=== PATIENT | male | born 1965 | race Caucasian/White ===

== ENCOUNTER → 2017-10-27 12:57 | Outpatient (CLI) | payer SELFPAY ==
[2017-10-27 14:03] LABS: Absolute Lymphocyte Count 2.69 X10^3/ul (0.83-4.51); Absolute Neutrophil Count 4.2 X10^3/uL (2.0-7.7); Basophil# 0.03 X10^3/uL; Basophil% 0.4 % (0-1); Eosinophil# 0.25 X10^3/uL; Eosinophils% 3.2 % (0-5); Hematocrit 49.1 % (40-54); Hemoglobin 17.1 g/dl (13.0-16.5); Lymphocyte # 2.69 X10^3/ul (4.0); Lymphocyte % 34.3 % (19-41); Mean Corp Hgb Conc 34.8 g/gl (32-36); Mean Corpuscular Hgb 29.7 pg (27.0-32.0); Mean Corpuscular Volume 85.4 fL (80-94); Mean Platelet Vol. 10.9 fl (6.2-12.0); Monocyte# 0.67 X10^3/uL; Monocyte% 8.5 % (0-10); Neutrophil # 4.17 X10^3/uL (2.7-7.7); Neutrophil % 53.2 % (47-70); Platelet Count 160 K/mm3 (150-450); RBC Distribution Width CV 12.1 % (11.6-14.6); Red Blood Count 5.75 M/mm3 (4.6-6.2); White Blood Count 7.8 K/mm3 (4.4-11.0)
[2017-10-27 14:04] LABS: POSITIVE COUNT NO; POSITIVE DIFFERENTIAL NO; POSITIVE MORPHOLOGY NO
[2017-10-27 14:28] LABS: ALB/GLOB Ratio 1.1 RATIO (0.9-2.4); AST(SGOT) 18 U/L (15-37); Alanine Aminotransfer ALT/SGPT 31 U/L (16-61); Albumin, Serum 3.7 g/dL (3.2-5.0); Alkaline Phosphatase 60 U/L (45-117); Anion Gap 2 (5-15); BUN 12 mg/dL (7-18); BUN/Creat Ratio 11.2 RATIO (10-20); Calcium,Total 8.6 mg/dL (8.5-10.1); Chloride 107 mmol/L (98-107); Creatinine, Serum 1.07 mg/dL (0.70-1.30); EST Glomerular Filtration Rate 77 mL/min (>60); Est Glom Filt Rate - Afr Amer 93 mL/min (>60); Globulin 3.4 g/dL (2.2-4.2); Glucose 93 mg/dL (74-106); PSA,Total - Annual Screen 1.32 ng/mL (0.00-4.00); Protein, Total 7.1 g/dL (6.4-8.2); Sodium Level 139 mmol/L (136-145); Thyroid Stim Hormone (TSH) 0.63 uIU/mL (0.358-3.74)
[2017-10-27 15:05] LABS: HIV - WCH Non-Reactive (Nonreactive); Vitamin D,25 Hydroxy 19.1 ng/mL (29.95-100.01)
[2017-10-30 15:08] LABS: HCV Quant. RNA PCR HCV Not Detected IU/mL (.)
== END ==
PROVIDERS: Family Provider Family Medicine; PCP Family Medicine; Visit Provider Family Medicine
DX: R51 Headache (principal); R53.82 Chronic fatigue, unspecified; Z12.5 Encounter for screening for malignant neoplasm of prostate
CPT/HCPCS: 36415; 80053; 82306; 84153; 84443; 85025; 86703; 87522; G0103

== ENCOUNTER → 2019-09-06 13:49 | Outpatient (CLI) | payer SELFPAY ==
--- NOTE | 2019-09-06 13:57 | CT_ITS ---
STUDY: CT ABDOMEN AND PELVIS WITH CONTRAST REASON FOR EXAM: Male, 54 years old. LEFT UPPER QUAD ABD PAIN X 1 MONTH RADIATION DOSAGE (If Supplied By Facility): CTDIvol = ( 9.10 ) mGy, DLP = ( 411.39 ) mGycm TECHNIQUE: Transaxial images were obtained from the dome of the diaphragm to the symphysis pubis with oral contrast. Oral and amp; IV Readi-CAT and amp; 100mL Isovue-300 was administered. Sagittal and coronal images were reconstructed. Individualized dose optimization techniques were used for this CT. COMPARISON: Comparison is made with prior examination dated June 28, 2014. FINDINGS: The visualized lung bases are unremarkable. The visualized portions of the heart are within normal limits. Normal liver. Normal gallbladder and extrahepatic biliary system. Normal spleen. The previously seen hypodensity in the posterior midportion of the spleen is not seen at this time. Normal pancreas. There is a small, circumscribed, smooth, low attenuation left adrenal mass, consistent with an adrenal adenoma. This measures 7.8 mm. This is unchanged. Normal right adrenal gland. Normal right kidney. Normal left kidney. There is a small hiatal hernia. Normal small intestine. There are multiple colonic diverticula consistent with diverticulosis. The appendix is visualized and appears normal. There is atherosclerotic calcification of the abdominal aorta, without a demonstrated aneurysm. Normal inferior vena cava. There is borderline retroperitoneal lymphadenopathy with enlarged nodes no greater than 10mm in the short axis diameter. Normal urinary bladder. The prostate measures 3.9 cm x 4.2 cm. This causes indentation of the bladder base. There is a small umbilical hernia containing fat. Small right inguinal hernia containing fat. There are mild degenerative changes of the visualized lumbar spine. CT/Abdomen/Pelvis WITH Contrast IMPRESSION: Stable 7.8 mm adenoma in the left adrenal gland. Sigmoid diverticulosis. No acute amount is seen. Electronically Signed: Jonatan Gomez, at 14:30 EDT , Service support ,
== END ==
PROVIDERS: PCP Family Medicine; Referring Provider Family Medicine; Visit Provider Family Medicine
DX: R10.12 Left upper quadrant pain (principal)
CPT/HCPCS: 74177; Q9967

== ENCOUNTER → 2019-09-13 12:27 | Outpatient (CLI) | payer SELFPAY ==
[2016-08-18 22:25] VITALS: BMI 23.0
[2019-09-13 14:20] LABS: PSA,Total - Annual Screen 2.38 ng/mL (0.00-4.00)
== END ==
PROVIDERS: PCP Family Medicine; Referring Provider Family Medicine; Visit Provider Family Medicine
DX: Z12.5 Encounter for screening for malignant neoplasm of prostate (principal)
CPT/HCPCS: 36415; 84153; G0103

== ENCOUNTER → 2020-03-20 14:10 | Outpatient (CLI) | payer SELFPAY ==
--- NOTE | 2020-03-20 14:13 | CT_ITS ---
STUDY: CT ABDOMEN AND PELVIS WITH CONTRAST REASON FOR EXAM: Male, 55 years old. DIVERTICULITIS RADIATION DOSAGE (If Supplied By Facility): CTDIvol = ( 8.19 ) mGy, DLP = ( 328.94 ) mGycm TECHNIQUE: Transaxial images were obtained from the dome of the diaphragm to the symphysis pubis without oral contrast. IV 100mL Isovue-300 was administered. Sagittal and coronal images were reconstructed. Individualized dose optimization techniques were used for this CT. COMPARISON: Comparison is made with prior study of 09/06/2019. FINDINGS: The visualized lung bases are unremarkable. The visualized portions of the heart are within normal limits. Normal liver. Normal gallbladder and extrahepatic biliary system. Normal spleen. Normal pancreas. There is a small, circumscribed, smooth, low attenuation left adrenal mass, consistent with an adrenal adenoma. This measures 9 mm. This is unchanged. Normal right adrenal gland. Normal right kidney. Normal left kidney. There is a small hiatal hernia. Normal small intestine. There are scattered colonic diverticula consistent with diverticulosis. The appendix is visualized and appears normal. Normal abdominal aorta. Normal inferior vena cava. Normal retroperitoneum. Normal urinary bladder. There is enlargement of the prostate gland. It measures 4 cm x 4.2 cm. There is a right-sided inguinal hernia containing adipose tissue. There are mild degenerative changes of the visualized lumbar spine. CT/Abdomen/Pelvis WITH Contrast IMPRESSION: Stable 9 mm nodule in the left adrenal gland suggestive of adenoma. Mild prostatic hypertrophy. Electronically Signed: Jonatan Gomez, at 15:16 EST , Service support ,
== END ==
LOC: CT 14:12
PROVIDERS: PCP Family Medicine; Referring Provider Family Medicine; Visit Provider Family Medicine
DX: K57.32 Diverticulitis of large intestine without perforation or abscess without bleeding (principal)
CPT/HCPCS: 74177; Q9967

== ENCOUNTER 2020-04-15 10:11 | Day surgery (SDC) | payer SELFPAY ==
[2020-04-15] VITALS (7 sets, daily range): BP systolic 112–123; BP diastolic 63–80; PULSE 62–91; RESP 16–18; TEMP 36.4–36.9; O2SAT 98–100; BMI 20.9
[2020-04-15] MEDS: Lactated Ringers 1,000 ML 100 ML IV (10:54)
--- NOTE | 2020-04-15 11:00 | HP_ITS ---
Intake Intake Visit Reasons: UPDATE H& P CSCOPE Chief Complaint: discuss scope International Coordinator Required: No Is patient in pain?: No Allergies No Known Allergies Allergy (Verified 03/05/20 14:07) Medications ascorbic acid (vitamin C) 1,000 mg tablet 1 g PO DAILY tab 09/20/19 [History Confirmed 03/05/20] cholecalciferol (vitamin D3) 25 mcg (1,000 unit) capsule 25 mcg PO DAILY 09/20/19 [History Confirmed 03/05/20] multivitamin 1 tab PO DAILY 09/20/19 [History Confirmed 03/05/20] amoxicillin 875 mg-potassium clavulanate 125 mg tablet 1 tab PO BID 03/05/20 [History Confirmed 03/05/20] PFSH Medical History Viral hepatitis C without hepatic coma (Acute) Nasal sinus polyp (Acute) IBS (irritable bowel syndrome) (Acute) Vitamin D deficiency (Acute) Chronic fatigue (Chronic) Kidney stones (Acute) Diarrhea (Acute) Abdominal pain (Acute) Surgical History Hx of toe surgery (Acute) Hx of nasal polypectomy (Acute) Hx of excision of mass (Acute) Family History Father Prostate cancer Mother Crohn disease Colitis Thyroid disorder Social History (Updated 03/05/20 @ 15:25 by Oneyda JACOBO, PA-C) Smoking Status: Never smoker second hand exposure: No alcohol intake: never substance use type: does not use caffeine: Yes what type of physical activity do you participate in: none frequency: does not exercise HPI HPI HPI: VITALY BRYANT, is a 55 M who presents to the office today for HPI HPI HPI: VITALY BRYANT is a 55 M who presents to the office today for scheduling colonoscopy. Patient was noted to start antibiotics on Monday by his PCP for diverticulitis. Patient notes he continues to have pain and has 3 days left of antibiotics. Assessment & Plan Problems 1. Left upper quadrant abdominal pain R10.12 Plan - Patient will need to complete antibiotics and be pain free for 4-5 weeks prior to scheduling for a colonoscopy - Patient also was notified that he will have to meet with financial services prior to scheduling due to a hospital balance. Coding Level of Care Code Off vis,est,level 2 Diagnoses Left upper quadrant abdominal pain R10.12 ??Abdominal location: left upper quadrant I have re-examined the patient. There are no clinical changes since date of exam.
--- NOTE | 2020-04-15 11:30 | COLBX_PTH ---
PATIENT: VITALY BRYANT LOC: EN U#:[id number] AGE/SX: 55/M ROOM: RE04/15/[address]: Dr. Fortunato Olivares MD : 1965 BED: DIS: 04/15/2020 SPEC #: [id number] RECD: 04/15/20 14:09 STATUS: JIM KIKA #: [id number] ABILIO: 04/15/20 11:[address]: Fortunato Olivares DEPT: SURGICAL PATHOLOGY RECD BY: Ladonna Ford ENTERED: 04/15/20 14:16 SP TYPE: COLON BX OTHR DR: Dr. Dante Martin DO Tissues: COLON BIOPSY Procedures: Surgery Specimen Level IV HEADER OPERATION: Colonoscopy (MAC) PRE-OP DIAGNOSIS: Left upper quadrant abdominal pain TISSUE SUBMITTED: Random colonic biopsy MICROSCOPIC DIAGNOSIS Colon, random biopsy: Fragments of colonic mucosa with a few pigment-laden macrophages, suggestive of melanosis coli. SJ:oniel 04/16/20 MICROSCOPIC DESCRIPTION Slides are reviewed. GROSS DESCRIPTION Received in fixative is one container labeled with the patient's name and designated random colon biopsy. The specimen consists of multiple irregular fragments of light green soft tissue that in aggregate measure 2 x 1 x 0.1 cm. The specimen is totally submitted in one cassette. / AM:oniel 04/15/20 TC:5 CPT: 19382
--- NOTE | 2020-04-15 11:43 | OP.CCLET_ITS ---
04/15/2020 Dante Martin [address] [place] [address] Re : Colonoscopy procedure for Antony Mazariegos Dear Dr. Martin This procedure was performed on Wednesday, April 15, 2020. My impressions and recommendations are as follows: Impressions : - The examined portion of the ileum was normal. - The entire examined colon is normal. Biopsied. - Non-bleeding internal hemorrhoids. No specimens collected. - The examination was otherwise normal. Recommendations : - Discharge patient to home. - Resume previous diet. - Continue present medications. - Await pathology results. - Repeat colonoscopy in 10 years for screening purposes. - Return to my office in 1 week. I am going to see the patient back in my office in 1 week. I am going to order a barium swallow of small bowel follow-through. - Perform a small bowel follow through at appointment to be scheduled. - Perform a barium swallow using barium in liquid and tablet form at appointment to be scheduled. My findings are described in the full procedure note, which is enclosed. If I can be of further assistance, please feel free to contact me at Doctor phone number(s): , Fax: [phone], Work: . Sincerely, MD Fortunato Vogel MD 04/15/2020 11:43:09 AM This report has been signed electronically.
--- NOTE | 2020-04-15 11:43 | OP.COLON_ITS ---
Patient Name: Antony Mazariegos Procedure Date: 04/15/2020 11:19 AM Date of : 1965 Age: 55 Procedure: Colonoscopy Indications: Abdominal pain in the left upper quadrant Providers: Fortunato Olivares MD Referring MD: Dante Martin Medicines: See the Anesthesia note for documentation of the administered medications Patient Profile: This is a 55 year old male. Refer to note in patient chart for documentation of history and physical. Last Colonoscopy: none. The patient's first colonoscopy is today. Complications: No immediate complications. Procedure: Pre-Anesthesia Assessment: - Prior to the procedure, a History and Physical was performed, and patient medications and allergies were reviewed. The patient's tolerance of previous anesthesia was also reviewed. The risks and benefits of the procedure and the sedation options and risks were discussed with the patient. All questions were answered, and informed consent was obtained. Prior Anticoagulants: The patient has taken no previous anticoagulant or antiplatelet agents. ASA Grade Assessment: II - A patient with mild systemic disease. After reviewing the risks and benefits, the patient was deemed in satisfactory condition to undergo the procedure. After I obtained informed consent, the scope was passed under direct vision. Throughout the procedure, the patient's blood pressure, pulse, and oxygen saturations were monitored continuously. The colonoscope was introduced through the anus and advanced to 3 cm into the ileum. The colonoscopy was performed without difficulty. The patient tolerated the procedure well. The quality of the bowel preparation was good. Scope In: 11:26:08 AM Scope Withdrawal Time 0 hours 6 minutes 45 seconds Scope Out: 11:35:59 AM Total Procedure Duration Time 0 hours 9 minutes 51 seconds Findings: The terminal ileum appeared normal. The colon (entire examined portion) appeared normal. Biopsies for histology were taken with a cold forceps from the entire colon for evaluation of microscopic colitis. Non-bleeding internal hemorrhoids were found during retroflexion. The hemorrhoids were mild and small. No biopsies or other specimens were collected for this exam. The exam was otherwise without abnormality. Impression: - The examined portion of the ileum was normal. - The entire examined colon is normal. Biopsied. - Non-bleeding internal hemorrhoids. No specimens collected. - The examination was otherwise normal. Recommendation: - Discharge patient to home. - Resume previous diet. - Continue present medications. - Await pathology results. - Repeat colonoscopy in 10 years for screening purposes. - Return to my office in 1 week. I am going to see the patient back in my office in 1 week. I am going to order a barium swallow of small bowel follow-through. - Perform a small bowel follow through at appointment to be scheduled. - Perform a barium swallow using barium in liquid and tablet form at appointment to be scheduled. Procedure Code(s): --- Professional --- 32260, Colonoscopy, flexible; with biopsy, single or multiple Diagnosis Code(s): --- Professional --- K64.8, Other hemorrhoids R10.12, Left upper quadrant pain CPT copyright 2017 [employer]. All rights reserved. The codes documented in this report are preliminary and upon automated cutting machine operator review may be revised to meet current compliance requirements. MD Fortunato Vogel MD 04/15/2020 11:43:09 AM This report has been signed electronically. Number of Addenda: 0 Note Initiated On: 04/15/2020 11:19 AM
== END 2020-04-15 12:43 | disposition home or self-care (01) ==
LOC: EN 10:13 → AC 10:16
PROVIDERS: PCP Family Medicine; Referring Provider Family Medicine; Visit Provider Surgery
PROC: 0DJD8ZZ Inspection of Lower Intestinal Tract, Via Natural or Artificial Opening Endoscopic (ICD-10-PCS; CPT 45378; principal; 2020-04-15 11:25)
DX: R10.12 Left upper quadrant pain (principal); K64.8 Other hemorrhoids; R53.82 Chronic fatigue, unspecified
CPT/HCPCS: 45380; 87426; 88305; C9803; J7120

== ENCOUNTER → 2020-12-26 13:53 | Outpatient (CLI) | payer SELFPAY | LOC: EMPH 12-28 08:11 → LABSPEC 01-14 13:53 | PROVIDERS: PCP Family Medicine; Referring Provider Nurse Practitioner Family; Visit Provider Internal Medicine Infectious Disease | DX: U07.1 COVID-19 (principal) | CPT/HCPCS: 87635; U0005; U0003 ==

== ENCOUNTER 2021-01-01 14:49 | Emergency (ER) | payer MEDICARE, SELFPAY ==
[2021-01-01 14:50] VITALS: BP 145/81; PULSE 72; RESP 18; TEMP 36.6; O2SAT 97; BMI 20.9
--- NOTE | 2021-01-01 15:05 | RAD_ITS ---
STUDY: X-RAY CHEST REASON FOR EXAM: Male, 55 years old. SOB TECHNIQUE: Single AP portable view of the chest. COMPARISON: None. FINDINGS: There is hyperinflation of the lungs consistent with chronic obstructive lung disease (COPD). There is no demonstrated pleural abnormality. Normal size heart. Normal mediastinum and melissa. There is prominence of the pulmonary hilar arteries without peripheral pulmonary vascular congestion, suggesting pulmonary hypertension. Normal visualized aortic arch and descending thoracic aorta. Normal visualized thoracic spine. Normal visualized ribs, clavicles, and shoulders. There is no demonstrated abnormality of the visualized soft tissue structures of the upper abdomen. RAD/Chest 1 View IMPRESSION: Hyperinflation. Findings suggestive of COPD with decreased bronchovascular markings in both lungs. Electronically Signed: Jonatan Gomez MD at 15:27 EDT , Service support ,
[2021-01-01 15:49] VITALS: O2SAT 97
[2021-01-01 15:52] VITALS: BP 119/74; PULSE 75; RESP 14; TEMP 37; O2SAT 96
--- NOTE | 2021-01-01 16:18 | EDS_ITS ---
HPI History of Present Illness Chief Complaint: Shortness of Breath Informant: patient Onset/Context/Timing Onset: Days (3) Context: gradual Timing: Continuous Worsened by: Nothing Relieved by: - (Fan, vaporizer) Associated Symptoms cough and clear sputum; Negative for rhinorrhea, post nasal drip, ear pain, fever, sore throat, chills or sweats Narrative Narrative: Patient presents with shortness of breath that has been getting worse over the past 3 days. Patient tested positive for COVID-19 1 week ago. Patient states his symptoms started at that time but it was more muscle aches and body aches. Patient states his breathing problem started approximately 3 days ago. Patient states his breathing is better with a vaporizer and fan. Patient admits to a cough with some clear sputum. Patient admits to some burning in his chest bilaterally. [facility] Medical History (Updated 01/01/21 @ 17:[address] Kieran Morillo DO) Abdominal pain Chronic fatigue Diarrhea IBS (irritable bowel syndrome) Kidney stones Nasal sinus polyp Viral hepatitis C without hepatic coma Vitamin D deficiency Home Medications cholecalciferol (vitamin D3) [Vitamin D3] 0 mcg PO DAILY 01/01/21 [History Last Taken Unknown] dexamethasone 6 mg PO DAILY 01/01/21 [History Last Taken Unknown] Allergy/AdvReac Type Severity Reaction Status Date / Time Latex, Natural Rubber AdvReac Rash Verified 01/01/21 14:50 Family History Father Prostate cancer Mother Crohn disease Colitis Thyroid disorder Surgical History History of colonoscopy (~04/2020) Hx of excision of mass Hx of nasal polypectomy Hx of toe surgery Social History Smoking Status: Never smoker second hand exposure: No alcohol intake: never substance use type: does not use caffeine: Yes what type of physical activity do you participate in: none frequency: does not exercise ROS ROS ED Constitutional Constitutional ED: Denies chills or fever(s) Eyes Eyes: Denies blurry vision or change in vision ENT ENT ED: Denies rhinorrhea or sore throat Cardiovascular Cardiovascular: Reports chest pain; Denies palpitations Respiratory/Chest Respiratory/Chest: Reports cough and dyspnea Gastrointestinal Gastrointestinal: Denies nausea or vomiting Genitourinary Genitourinary ED: Reports urinary frequency; Denies dysuria or hematuria Musculoskeletal Musculoskeletal: Reports back pain; Denies neck pain Integumentary Denies abscess or rash Neurologic Neurologic: Denies headache(s) or weakness Allergic/Immunologic Allergic/Immunologic ED: Denies mouth swelling or urticaria EXAM Physical Exam Const Vital Signs: 01/01/21 14:50 01/01/21 15:49 01/01/21 15:52 Temperature 97.9 F 98.6 F Temperature Source Temporal Oral Pulse Rate 72 75 Respiratory Rate 18 14 Respiratory Effort Short of Breath Respiratory Depth Normal Respiratory Pattern Normal Blood Pressure 145/81 H 119/74 Blood Pressure Mean 102 89 Pulse Ox 97 96 Oxygen Delivery Method Room Air Room Air Room Air 01/01/21 17:23 Temperature Temperature Source Pulse Rate 69 Respiratory Rate 16 Respiratory Effort Respiratory Depth Respiratory Pattern Blood Pressure 118/72 Blood Pressure Mean 87 Pulse Ox 97 Oxygen Delivery Method Room Air Positive well nourished and well developed General Appearance ED: well developed HEENT Reports moist mucous membranes Neck supple and no JVD Resp normal respiratory effort and clear to auscultation bilaterally Cardio regular rate, regular rhythm and no murmurs GI normal to inspection, nondistended, normoactive bowel sounds and non-tender Palpation: soft Extremity normal to inspection General Extremety ED: Negative for edema or tenderness General Extremity: Negative for edema Neuro oriented x3, CN's II-XII intact bilaterally and no sensory deficits noted Sensorium / Orientation: alert Motor Exam: strength 5/5 throughout Psych mental status grossly normal Skin no rashes or lesions noted MDM MDM MDM Narrative Medical decision making narrative: Portable 1 view chest x-ray was obtained. On my interpretation, lung colon are clear. There is normal cardiac silhouette. Bony thorax is normal. There is no acute process noted. Radiologist also interpreted the x-ray and agrees. CBC and comprehensive metabolic profile were within normal limits. Lactate was normal. Urinalysis does not show any evidence of urinary tract infection. Patient was given 4 puffs of an albuterol inhaler here. Patient is feeling somewhat better on reevaluation. Patient was instructed to continue his dexamethasone as prescribed. Patient was instructed to use his inhaler every 4 hours as needed. Patient was instructed to follow-up with his primary care physician in 3 to 5 days. Patient understood and was agreeable with the plan. All questions were answered. Lab Data Attestation: I reviewed the patient's lab results. Labs: Laboratory Results - last 24 hr 01/01/21 01/01/21 01/01/21 15:55 15:55 16:40 WBC 7.4 RBC 5.58 Hgb 16.1 Hct 48.4 MCV 86.7 MCH 28.9 MCHC 33.3 RDW Std Deviation 37.7 RDW Coeff of Harpal 11.8 Plt Count 113 L MPV 11.4 Immature Gran % (Auto) 0.300 Neut % (Auto) 87.3 H Lymph % (Auto) 8.4 L Bond % (Auto) 3.7 Eos % (Auto) 0.0 Baso % (Auto) 0.3 Absolute Neuts (auto) 6.4 Absolute Lymphs (auto) 0.62 L Nucleated RBC % 0 Sodium 140 Potassium 4.0 Chloride 106 Carbon Dioxide 30.0 Anion Gap 4 L BUN 10 Creatinine 0.95 Estim Creat Clear Calc 88.26 Est GFR (MDRD) Af Amer 106 Est GFR (MDRD) Non-Af 87 BUN/Creatinine Ratio 10.5 Glucose 115 H Lactic Acid 1.0 Calcium 8.6 Total Bilirubin 0.60 AST 25 ALT 45 Alkaline Phosphatase 53 Total Protein 7.1 Albumin 3.6 Globulin 3.5 Albumin/Globulin Ratio 1.0 Urine Color Urine Clarity Urine pH Ur Specific [place] Urine Protein Urine Glucose (UA) Urine Ketones Urine Occult Blood Urine Nitrite Urine Bilirubin Urine Urobilinogen Ur Leukocyte Esterase Urine RBC Urine WBC Ur Squamous Epith Cells Urine Bacteria Urine Mucus 01/01/21 16:53 WBC RBC Hgb Hct MCV MCH MCHC RDW Std Deviation RDW Coeff of Harpal Plt Count MPV Immature Gran % (Auto) Neut % (Auto) Lymph % (Auto) Bond % (Auto) Eos % (Auto) Baso % (Auto) Absolute Neuts (auto) Absolute Lymphs (auto) Nucleated RBC % Sodium Potassium Chloride Carbon Dioxide Anion Gap BUN Creatinine Estim Creat Clear Calc Est GFR (MDRD) Af Amer Est GFR (MDRD) Non-Af BUN/Creatinine Ratio Glucose Lactic Acid Calcium Total Bilirubin AST ALT Alkaline Phosphatase Total Protein Albumin Globulin Albumin/Globulin Ratio Urine Color Yellow Urine Clarity Clear Urine pH 7.0 Ur Specific [place] 1.010 Urine Protein Negative Urine Glucose (UA) Normal Urine Ketones Negative Urine Occult Blood Negative Urine Nitrite Negative Urine Bilirubin Negative Urine Urobilinogen Normal Ur Leukocyte Esterase Negative Urine RBC 0 SEEN Urine WBC 0 SEEN Ur Squamous Epith Cells 0 SEEN Urine Bacteria 0 SEEN Urine Mucus 0 SEEN Radiography Chest X-Ray - ED: 1 View, Read by ED Physician, Read by Radiologist and Normal Diagnostic Testing: Radiology Impression Chest X-Ray 01/01/21 15:05 IMPRESSION: Hyperinflation. Findings suggestive of COPD with decreased bronchovascular markings in both lungs. Electronically Signed: Jonatan Gomez MD at 15:27 EDT , Service support , Discharge Plan Triage Chief Complaint: Shortness of Breath ED Provider: Kieran Morillo Dx/Rx/DC Orders Clinical Impression: COVID-19 Instructions: Coronavirus Disease 2019 (COVID-19): Caring for Yourself or Others Prescriptions: No Action dexamethasone 2 mg Tablet 6 mg PO DAILY RF: 0 cholecalciferol (vitamin D3) [Vitamin D3] 10 mcg (400 unit) Capsule 0 mcg PO DAILY RF: 0 Primary Care Provider: Dante Martin Referrals: Dante Martin, DO [Primary Care Provider] - 3-5 Days Disposition Disposition: Home, Self Care
[2021-01-01] MEDS: Acetaminophen 500 MG Tablet 1000 MG PO (16:30)
[2021-01-01 16:52] LABS: Absolute Lymphocyte Count 0.62 X10^3/uL (0.83-4.51); Absolute Neutrophil Count 6.4 X10^3/uL (2.0-7.7); Basophil# 0.02 X10^3/uL; Basophil% 0.3 % (0-1); Hematocrit 48.4 % (40-54); Hemoglobin 16.1 g/dL (13.0-16.5); Lymphocyte # 0.62 X10^3/ul (0.83-4.51); Lymphocyte % 8.4 % (19-41); Mean Corp Hgb Conc 33.3 g/dL (32-36); Mean Corpuscular Hgb 28.9 pg (27.0-32.0); Mean Corpuscular Volume 86.7 fL (80-94); Mean Platelet Vol. 11.4 fl (6.2-12.0); Monocyte# 0.27 X10^3/uL; Monocyte% 3.7 % (0-10); NRBC Flagged by Analyzer 0 % (0-5); Neutrophil # 6.42 X10^3/uL (2.7-7.7); Neutrophil % 87.3 % (47-70); Platelet Count 113 K/mm3 (150-450); RBC Distribution Width CV 11.8 % (11.6-14.6); RBC Distribution Width SD 37.7 fl (35.1-43.9); Red Blood Count 5.58 M/mm3 (4.6-6.2); White Blood Count 7.4 K/mm3 (4.4-11.0)
[2021-01-01 17:07] LABS: Bacteria 0 SEEN /hpf (None Seen); Mucous, Urine 0 SEEN /hpf (<or=2+); Red Blood Cells-Urine 0 SEEN /hpf (0-5); Squamous Epithelial Cells - UA 0 SEEN /hpf (0-5); White Blood Cells 0 SEEN /hpf (0-5)
[2021-01-01 17:18] LABS: AST(SGOT) 25 U/L (15-37); Alanine Aminotransfer ALT/SGPT 45 U/L (16-61); Albumin, Serum 3.6 g/dL (3.2-5.0); Alkaline Phosphatase 53 U/L (45-117); Anion Gap 4 (5-15); BUN 10 mg/dL (7-18); BUN/Creat Ratio 10.5 RATIO (10-20); Calcium,Total 8.6 mg/dL (8.5-10.1); Chloride 106 mmol/L (98-107); Creatinine, Serum 0.95 mg/dL (0.70-1.30); EST Glomerular Filtration Rate 87 mL/min (>60); Est Glom Filt Rate - Afr Amer 106 mL/min (>60); Estimated Creatinine Clearance 88.26 ml/min; Globulin 3.5 g/dL (2.2-4.2); Glucose 115 mg/dL (74-106); Protein, Total 7.1 g/dL (6.4-8.2); Sodium Level 140 mmol/L (136-145)
[2021-01-01 17:22] LABS: Color, Urine Yellow (Yellow); Glucose, Dipstick Normal (Normal); Ketone-Dipstick Negative (Negative); Leukocyte Esterase-Dipstick Negative /ul (Negative); Nitrite-Dipstick Negative (Negative); Occult Blood-Urine Negative /ul (Negative); Protein-Dipstick Negative (Negative); Urine Bilirubin Dipstick Negative (Negative); Urine Clarity Clear (Clear); Urine Urobilinogen Normal (Normal)
[2021-01-01 17:23] VITALS: BP 118/72; PULSE 69; RESP 16; O2SAT 97
[2021-01-01 18:06] VITALS: BP 122/69; PULSE 78; RESP 16; O2SAT 97
== END 2021-01-01 18:07 | disposition home or self-care (01) ==
PROVIDERS: Emergency Provider Emergency Medicine; PCP Family Medicine
DX: U07.1 COVID-19 (principal); B19.20 Unspecified viral hepatitis C without hepatic coma
CPT/HCPCS: 71045; 80053; 81001; 83605; 85025; 99285; A4216